=== PATIENT | female | born 1985 | race Caucasian/White ===

== ENCOUNTER → 2016-04-20 | Outpatient (CLI) | payer OTHER | LOC: FIMAGING 14:20 | PROVIDERS: ATTEND Registered Nurse General Practice | DX: D25.9 Leiomyoma of uterus, unspecified (principal); N83.02 Follicular cyst of left ovary; Z97.5 Presence of (intrauterine) contraceptive device ==

== ENCOUNTER 2017-08-21 21:05 | Observation (INO) | payer OTHER ==
[2017-08-21 21:46] LABS: PLATELET COUNT 157 10^3/uL (150-400)
== END 2017-08-21 22:30 | disposition home or self-care (01) ==
LOC: FLD 21:05
PROVIDERS: ADMIT Obstetrics & Gynecology; ATTEND Obstetrics & Gynecology
DX: Z03.79 Encounter for other suspected maternal and fetal conditions ruled out (principal); Z3A.37 37 weeks gestation of pregnancy
CPT/HCPCS: 59025; G0378